=== PATIENT | female | born 1990 | race Caucasian/White ===

== ENCOUNTER 2018-05-23 08:16 | Inpatient (IN) | payer OTHER ==
[2018-05-23 09:55] LABS: ADD MAN DIFF? NO
[2018-05-23 09:56] LABS: BASOPHIL # 0.1 10^3/ul (0.0-0.1); BASOPHILS % 0.4 % (0.0-2.0); EOSINOPHILS # 0.7 10^3/ul (0.0-0.5); HEMATOCRIT 30.5 % (37.0-47.0); HEMOGLOBIN 9.7 g/dl (12.0-16.0); LYMPHOCYTES # 1.2 10^3/ul (0.8-2.9); LYMPHOCYTES % 8.5 % (15.0-51.0); MEAN CORPUSCULAR HEMOGLOBIN 31.2 pg (29.0-33.0); MEAN CORPUSCULAR HGB CONC 31.8 g/dl (32.0-37.0); MEAN CORPUSCULAR VOLUME 98.1 fl (82.0-101.0); MONOCYTE # 0.4 10^3/ul (0.3-0.9); MONOCYTES % 2.9 % (0.0-11.0); NEUTROPHIL # 11.6 10^3/ul (1.6-7.5); NEUTROPHILS % 82.6 % (39.0-77.0); PLATELET COUNT 262 10^3/UL (140-415); RED BLOOD COUNT 3.11 10^6/ul (4.20-5.40); RED CELL DISTRIBUTION WIDTH 12.9 % (11.5-14.5)
[2018-05-23 09:56] LABS: WHITE BLOOD COUNT 14.1 10^3/ul (4.8-10.8)
[2018-05-23 10:17] LABS: INR 1.07; PT RATIO 1.1
[2018-05-23 10:18] LABS: PARTIAL THROMBOPLASTIN TIME 35.3 Sec (25.0-35.0)
[2018-05-23 10:28] LABS: ALANINE AMINOTRANSFERASE 15 IU/L (13-69); ALBUMIN 3.2 g/dl (3.3-4.9); ALBUMIN/GLOBULIN RATIO 0.96; ALKALINE PHOSPHATASE 118 IU/L (42-121); AMYLASE 116 U/L (11-123); ANION GAP 16 (8-16); ASPARTATE AMINO TRANSFERASE 18 IU/L (15-46); BILIRUBIN,INDIRECT 0.5 mg/dl (0-1.1); BILIRUBIN,TOTAL 0.5 mg/dl (0.2-1.3); BLOOD UREA NITROGEN 32 mg/dl (7-20); CALCIUM 8.8 mg/dl (8.4-10.2); CARBON DIOXIDE 35 mmol/L (21-31); CHLORIDE 93 mmol/L (97-110); CREATININE 6.87 mg/dl (0.44-1.00); GLUCOSE 88 mg/dl (70-220); LIPASE 88 U/L (23-300); POTASSIUM 4.3 mmol/L (3.5-5.1); SODIUM 140 mmol/L (135-144); TOTAL PROTEIN 6.5 g/dl (6.1-8.1)
[2018-05-23] MEDS: morphine 4 MG/ML VIAL IV ×2 (10:35→20:33)
[2018-05-23] MEDS: ONDANSETRON 4 MG INJ IV ×2 (10:35→19:32)
[2018-05-23] MEDS: ASPIRIN 325 MG TAB PO (10:35)
[2018-05-23 10:40] LABS: TROPONIN-I 0.081 ng/ml (0.000-0.120)
[2018-05-23] MEDS ORDERED: ACETAMINOPHEN 325 MG TAB PO (12:00)
[2018-05-23] MEDS ORDERED: NITROGLYCERIN (SL) 0.4 MG TAB SL (13:00)
[2018-05-23] MEDS ORDERED: NACL 0.9% 3 ML SYG IV (13:00)
[2018-05-23] MEDS ORDERED: ONDANSETRON 4 MG TAB PO (13:00)
[2018-05-23 14:27] LABS: CREATINE KINASE 88 IU/L (23-200)
[2018-05-23] MEDS: METOPROLOL 25 MG TAB PO ×2 (14:34→20:38)
[2018-05-23 14:40] LABS: CK INDEX 1.3; CK-MB 1.11 ng/ml (0.0-2.4); TROPONIN-I 0.082 ng/ml (0.000-0.120)
[2018-05-23] MEDS: AMLODIPINE 10 MG TAB PO (16:00)
[2018-05-23] MEDS ORDERED: hydrALAzine 20 MG INJ (16:45)
[2018-05-23] MEDS: LORAZEPAM 0.5 MG TAB PO (17:09)
[2018-05-23] MEDS: SEVELAMER 800 MG TAB PO (17:10)
[2018-05-23] MEDS: hydrALAzine 20 MG INJ IV (17:11)
[2018-05-23] MEDS: CALCIUM ACETATE 667 MG CAP PO (18:00)
[2018-05-23] MEDS: METOLAZONE 5 MG TAB PO (19:17)
[2018-05-23] MEDS: NICARDipine HCL 30 MG CAPSULE PO (19:36)
[2018-05-23] MEDS: niCARdipine-NS 0.1MG/ML DRIP 200 ML IV ×3 (19:43→23:10)
[2018-05-23] MEDS ORDERED: morphine 4 MG/ML VIAL (20:32)
[2018-05-23] MEDS: FAMOTIDINE 20 MG TAB PO (20:39)
[2018-05-23] MEDS: HEPARIN 5,000 UNIT/0.5 ML VIAL SC (21:00)
[2018-05-23 22:02] LABS: CREATINE KINASE 96 IU/L (23-200)
[2018-05-23 22:15] LABS: CK INDEX 1.2; CK-MB 1.11 ng/ml (0.0-2.4)
[2018-05-23 22:19] LABS: TROPONIN-I 0.158 ng/ml (0.000-0.120)
[2018-05-24] MEDS: LORAZEPAM 0.5 MG TAB PO (01:11)
[2018-05-24 03:38] LABS: CREATINE KINASE 144 IU/L (23-200)
[2018-05-24 03:49] LABS: CK INDEX 1.2
[2018-05-24 04:17] LABS: TROPONIN-I 0.169 ng/ml (0.000-0.120)
[2018-05-24 04:40] LABS: CK-MB 1.74 ng/ml (0.0-2.4)
[2018-05-24] MEDS: niCARdipine-NS 0.1MG/ML DRIP 200 ML IV (05:26)
[2018-05-24] MEDS: niCARdipine 25 MG in SOD CHLORIDE 0.9% 240 ML IV ×6 (07:58→22:30)
[2018-05-24 08:54] LABS: ADD MAN DIFF? NO
[2018-05-24 08:57] LABS: WHITE BLOOD COUNT 18.4 10^3/ul (4.8-10.8)
[2018-05-24 08:57] LABS: BASOPHIL # 0.1 10^3/ul (0.0-0.1); BASOPHILS % 0.3 % (0.0-2.0); EOSINOPHILS # 0.2 10^3/ul (0.0-0.5); EOSINOPHILS % 1.3 % (0.0-7.0); HEMOGLOBIN 8.6 g/dl (12.0-16.0); LYMPHOCYTES # 1.7 10^3/ul (0.8-2.9); MEAN CORPUSCULAR HEMOGLOBIN 31.3 pg (29.0-33.0); MEAN CORPUSCULAR HGB CONC 31.9 g/dl (32.0-37.0); MEAN CORPUSCULAR VOLUME 98.2 fl (82.0-101.0); MEAN PLATELET VOLUME 10.3 fl (7.4-10.4); MONOCYTE # 0.8 10^3/ul (0.3-0.9); MONOCYTES % 4.1 % (0.0-11.0); NEUTROPHIL # 15.6 10^3/ul (1.6-7.5); NEUTROPHILS % 84.4 % (39.0-77.0); NUCLEATED RED BLOOD CELLS # 0.1 10^3/ul (0.0-0.0); NUCLEATED RED BLOOD CELLS% 0.3 /100WBC (0.0-0.0); PLATELET COUNT 300 10^3/UL (140-415); RED BLOOD COUNT 2.75 10^6/ul (4.20-5.40); RED CELL DISTRIBUTION WIDTH 13.2 % (11.5-14.5)
[2018-05-24 09:21] LABS: CREATINE KINASE 135 IU/L (23-200)
[2018-05-24] MEDS: ASPIRIN 81 MG TAB PO (09:28)
[2018-05-24 09:29] LABS: ALANINE AMINOTRANSFERASE 28 IU/L (13-69); ALBUMIN 2.7 g/dl (3.3-4.9); ALBUMIN/GLOBULIN RATIO 1.03; ALKALINE PHOSPHATASE 101 IU/L (42-121); ANION GAP 17 (8-16); ASPARTATE AMINO TRANSFERASE 20 IU/L (15-46); BILIRUBIN,INDIRECT 0.3 mg/dl (0-1.1); BILIRUBIN,TOTAL 0.3 mg/dl (0.2-1.3); BLOOD UREA NITROGEN 46 mg/dl (7-20); CARBON DIOXIDE 34 mmol/L (21-31); CHLORIDE 93 mmol/L (97-110); CREATININE 8.54 mg/dl (0.44-1.00); GLUCOSE 109 mg/dl (70-220); POTASSIUM 4.7 mmol/L (3.5-5.1); SODIUM 139 mmol/L (135-144); TOTAL PROTEIN 5.3 g/dl (6.1-8.1)
[2018-05-24 09:35] LABS: CK INDEX 1.5; CK-MB 2.08 ng/ml (0.0-2.4)
[2018-05-24 09:37] LABS: TROPONIN-I 0.164 ng/ml (0.000-0.120)
[2018-05-24] MEDS: HEPARIN 5,000 UNIT/0.5 ML VIAL SC ×2 (09:37→21:38)
[2018-05-24] MEDS: SEVELAMER 800 MG TAB PO ×3 (09:38→16:57)
[2018-05-24] MEDS: CALCIUM ACETATE 667 MG CAP PO ×3 (09:38→16:53)
[2018-05-24 09:48] LABS: IONIZED CALCIUM 1.1 mmol/L (1.1-1.4)
[2018-05-24 09:59] LABS: HEPATITIS B SURFACE ANTIGEN NEGATIVE (NEGATIVE)
[2018-05-24 11:03] LABS: HEPATITIS B SURFACE ANTIBODY POSITIVE (NEGATIVE)
[2018-05-24] MEDS: FAMOTIDINE 20 MG TAB PO (12:47)
[2018-05-24] MEDS: AMLODIPINE 10 MG TAB PO (12:47)
[2018-05-24] MEDS: LISINOPRIL 20 MG TAB PO (12:47)
[2018-05-24] MEDS: METOPROLOL 25 MG TAB PO ×2 (12:47→21:34)
[2018-05-24 14:29] LABS: CREATINE KINASE 120 IU/L (23-200)
[2018-05-24 14:40] LABS: CK INDEX 1.7; CK-MB 2.09 ng/ml (0.0-2.4)
[2018-05-24 14:51] LABS: TROPONIN-I 0.142 ng/ml (0.000-0.120)
[2018-05-24] MEDS: morphine 4 MG/ML VIAL IV (16:53)
[2018-05-25] MEDS: niCARdipine 25 MG in SOD CHLORIDE 0.9% 240 ML IV ×3 (00:50→05:09)
[2018-05-25] MEDS: ASPIRIN 81 MG TAB PO (08:58)
[2018-05-25] MEDS: AMLODIPINE 10 MG TAB PO (09:01)
[2018-05-25] MEDS: FAMOTIDINE 20 MG TAB PO (09:01)
[2018-05-25] MEDS: LISINOPRIL 20 MG TAB PO (09:01)
[2018-05-25] MEDS: SEVELAMER 800 MG TAB PO ×3 (09:02→18:40)
[2018-05-25] MEDS: CALCIUM ACETATE 667 MG CAP PO ×3 (09:03→18:40)
[2018-05-25] MEDS: HEPARIN 5,000 UNIT/0.5 ML VIAL SC ×2 (09:04→21:09)
[2018-05-25] MEDS: METOPROLOL 25 MG TAB PO ×2 (09:12→21:08)
[2018-05-25] MEDS: morphine 4 MG/ML VIAL IV ×2 (10:28→11:49)
[2018-05-25] MEDS ORDERED: VANCOMYCIN IV PER PHARMACY XX (10:30)
[2018-05-25 11:25] LABS: TROPONIN-I 0.098 ng/ml (0.000-0.120)
[2018-05-25] MEDS: VANCOMYCIN 1.25 GM in SOD CHLORIDE 0.9% 250 ML IVPB (12:38)
[2018-05-25] MEDS ORDERED: CEFEPIME 2GM/50 ML IVPB (14:00)
[2018-05-25] MEDS: CEFEPIME 2GM/50 ML IVPB (16:10)
[2018-05-26] MEDS: morphine 4 MG/ML VIAL IV ×2 (05:20→14:59)
[2018-05-26 05:41] LABS: ADD MAN DIFF? NO
[2018-05-26 05:52] LABS: BASOPHILS % 0.4 % (0.0-2.0); EOSINOPHILS % 10.2 % (0.0-7.0); HEMOGLOBIN 7.9 g/dl (12.0-16.0); LYMPHOCYTES # 1.3 10^3/ul (0.8-2.9); LYMPHOCYTES % 13.7 % (15.0-51.0); MEAN CORPUSCULAR HEMOGLOBIN 31.9 pg (29.0-33.0); MEAN CORPUSCULAR HGB CONC 31.6 g/dl (32.0-37.0); MEAN CORPUSCULAR VOLUME 100.8 fl (82.0-101.0); MEAN PLATELET VOLUME 10.2 fl (7.4-10.4); MONOCYTE # 0.4 10^3/ul (0.3-0.9); MONOCYTES % 4.3 % (0.0-11.0); NEUTROPHIL # 6.8 10^3/ul (1.6-7.5); NEUTROPHILS % 70.6 % (39.0-77.0); NUCLEATED RED BLOOD CELLS # 0.1 10^3/ul (0.0-0.0); NUCLEATED RED BLOOD CELLS% 1.2 /100WBC (0.0-0.0); PLATELET COUNT 276 10^3/UL (140-415); RED BLOOD COUNT 2.48 10^6/ul (4.20-5.40); RED CELL DISTRIBUTION WIDTH 13.4 % (11.5-14.5)
[2018-05-26 05:52] LABS: WHITE BLOOD COUNT 9.7 10^3/ul (4.8-10.8)
[2018-05-26 07:02] LABS: ANION GAP 12 (8-16); BLOOD UREA NITROGEN 39 mg/dl (7-20); CALCIUM 8.3 mg/dl (8.4-10.2); CARBON DIOXIDE 31 mmol/L (21-31); CHLORIDE 95 mmol/L (97-110); CREATININE 6.85 mg/dl (0.44-1.00); GLUCOSE 92 mg/dl (70-220); MAGNESIUM 2.3 mg/dl (1.7-2.5); PHOSPHORUS 6.4 mg/dl (2.5-4.9); POTASSIUM 4.4 mmol/L (3.5-5.1); SODIUM 134 mmol/L (135-144)
[2018-05-26] MEDS: SEVELAMER 800 MG TAB PO ×3 (07:54→17:08)
[2018-05-26] MEDS: CALCIUM ACETATE 667 MG CAP PO ×3 (07:54→17:08)
[2018-05-26] MEDS: LISINOPRIL 20 MG TAB PO ×2 (08:25→20:14)
[2018-05-26] MEDS: ASPIRIN 81 MG TAB PO (08:25)
[2018-05-26] MEDS: METOPROLOL 25 MG TAB PO ×2 (08:25→20:14)
[2018-05-26] MEDS: AMLODIPINE 10 MG TAB PO (08:25)
[2018-05-26] MEDS: FAMOTIDINE 20 MG TAB PO (08:26)
[2018-05-26] MEDS: HEPARIN 5,000 UNIT/0.5 ML VIAL SC ×2 (08:34→20:17)
[2018-05-26] MEDS: CEFEPIME 2GM/50 ML IVPB (15:45)
[2018-05-26] MEDS: DOCUSATE SODIUM 100 MG CAP PO (22:20)
[2018-05-26] MEDS: LORAZEPAM 0.5 MG TAB PO (22:20)
[2018-05-27] MEDS: hydrALAzine 20 MG INJ IV (00:50)
[2018-05-27 06:18] LABS: ADD MAN DIFF? NO
[2018-05-27 06:20] LABS: WHITE BLOOD COUNT 9.8 10^3/ul (4.8-10.8)
[2018-05-27 06:20] LABS: BASOPHILS % 0.3 % (0.0-2.0); EOSINOPHILS % 10.1 % (0.0-7.0); HEMATOCRIT 25.9 % (37.0-47.0); HEMOGLOBIN 8.2 g/dl (12.0-16.0); LYMPHOCYTES # 1.2 10^3/ul (0.8-2.9); LYMPHOCYTES % 12.4 % (15.0-51.0); MEAN CORPUSCULAR HEMOGLOBIN 32.4 pg (29.0-33.0); MEAN CORPUSCULAR HGB CONC 31.7 g/dl (32.0-37.0); MEAN CORPUSCULAR VOLUME 102.4 fl (82.0-101.0); MONOCYTE # 0.5 10^3/ul (0.3-0.9); MONOCYTES % 4.7 % (0.0-11.0); NEUTROPHILS % 71.9 % (39.0-77.0); NUCLEATED RED BLOOD CELLS # 0.1 10^3/ul (0.0-0.0); NUCLEATED RED BLOOD CELLS% 0.7 /100WBC (0.0-0.0); PLATELET COUNT 274 10^3/UL (140-415); RED BLOOD COUNT 2.53 10^6/ul (4.20-5.40); RED CELL DISTRIBUTION WIDTH 13.7 % (11.5-14.5)
[2018-05-27 06:37] LABS: ANION GAP 11 (8-16); BLOOD UREA NITROGEN 26 mg/dl (7-20); CALCIUM 8.2 mg/dl (8.4-10.2); CARBON DIOXIDE 31 mmol/L (21-31); CHLORIDE 98 mmol/L (97-110); CREATININE 5.21 mg/dl (0.44-1.00); GLUCOSE 93 mg/dl (70-220); POTASSIUM 4.4 mmol/L (3.5-5.1); SODIUM 136 mmol/L (135-144)
[2018-05-27 06:41] LABS: VANCOMYCIN,RANDOM 13.2 ug/ml
[2018-05-27] MEDS: SEVELAMER CARBONATE 800 MG TABLET PO ×2 (08:24→12:32)
[2018-05-27] MEDS: ASPIRIN 81 MG TAB PO (08:25)
[2018-05-27] MEDS: LISINOPRIL 20 MG TAB PO (08:25)
[2018-05-27] MEDS: CALCIUM ACETATE 667 MG CAP PO ×2 (08:25→12:32)
[2018-05-27] MEDS: FAMOTIDINE 20 MG TAB PO (08:25)
[2018-05-27] MEDS: AMLODIPINE 10 MG TAB PO (08:25)
[2018-05-27] MEDS: METOPROLOL 25 MG TAB PO (08:27)
[2018-05-27] MEDS: HEPARIN 5,000 UNIT/0.5 ML VIAL SC (08:41)
[2018-05-27] MEDS: VANCOMYCIN 1 GM 250 ML IVPB (10:00)
[2018-05-27] MEDS: CEFEPIME 2GM/50 ML IVPB (15:49)
== END 2018-05-27 18:00 | disposition home or self-care (01) | DRG 682 ==
LOC: ICU 11:40 → E/R 08:16 → TEL 05-26 21:18
PROC: 5A1D70Z Performance of Urinary Filtration, Intermittent, Less than 6 Hours Per Day (ICD-10-PCS; principal; 2018-05-24)
PROC: 5A1D70Z Performance of Urinary Filtration, Intermittent, Less than 6 Hours Per Day (ICD-10-PCS; 2018-05-26)
DX: I12.0 Hypertensive chronic kidney disease with stage 5 chronic kidney disease or end stage renal disease (principal); N18.6 End stage renal disease; E46 Unspecified protein-calorie malnutrition; R65.10 Systemic inflammatory response syndrome (SIRS) of non-infectious origin without acute organ dysfunction; N25.81 Secondary hyperparathyroidism of renal origin; I16.0 Hypertensive urgency; Z99.2 Dependence on renal dialysis; H61.23 Impacted cerumen, bilateral; D63.1 Anemia in chronic kidney disease; Z91.14 Patient's other noncompliance with medication regimen; Z68.25 Body mass index [BMI] 25.0-25.9, adult; E89.2 Postprocedural hypoparathyroidism; E83.9 Disorder of mineral metabolism, unspecified; Q63.8 Other specified congenital malformations of kidney; E87.70 Fluid overload, unspecified; R07.9 Chest pain, unspecified
CPT/HCPCS: 71045; 80048; 80053; 80202; 82150; 82330; 82550; 82553; 83690; 83735; 84100; 84443; 84484; 84703; 85025; 85610; 85730; 86706; 87040; 87340; 90935; 93005; 93306; 96374; 96375; 99285-25